=== PATIENT | female | born 1975 | race Caucasian/White ===

== ENCOUNTER 2017-07-27 10:08 | Inpatient (IN) | payer OTHER ==
[~2017-07-27] VITALS: Ht 167.6 cm; Wt 102.9 kg
[~2017-07-27 10:08] MED LIST: BUPIVACAINE/PF 0.5% ONE; EPINEPHRINE 1 MG/ML, 1ML ONE
[2017-07-27] MEDS ORDERED: SCOPOLAMINE PATCH, 1.5MG PATCH.TD72 TD STA (10:12)
[2017-07-27] MEDS ORDERED: PLEASE ENTER ALLERGIES MC SCH (10:30)
[2017-07-27] MEDS ORDERED: PLEASE ENTER HEIGHT AND WEIGHT MC SCH (10:30)
[2017-07-27] MEDS ORDERED: SCOPOLAMINE PATCH, 1.5MG PATCH.TD72 TD ONE (11:13)
[2017-07-27 11:25] LABS: HCG UR SG 1.008 (1.003-1.030)
[2017-07-27] MEDS ORDERED: LACTATED RINGERS 1,000 ML IV SCH (11:26)
[2017-07-27] MEDS ORDERED: ALBUTEROL INH (11:26)
[2017-07-27] MEDS ORDERED: CETI10CA PO (11:26)
[2017-07-27] MEDS ORDERED: LEVO150T5 PO (11:26)
[2017-07-27] MEDS ORDERED: LIDOCAINE-MPF 1%, 2ML INFIL ONE (11:30)
[2017-07-27 11:31] VITALS: BP 139/90
[2017-07-27] MEDS ORDERED: ACETAMINOPHEN 325 MG TABLET PO PRN (12:30)
[2017-07-27] MEDS ORDERED: ONDANSETRON 2MG/ML, 2ML IVPush PRN (12:30)
[2017-07-27] MEDS ORDERED: ALBUTEROL SULFATE 2.5 MG/3 ML NPPB PRN (12:30)
[2017-07-27] MEDS ORDERED: EPHEDRINE 50 MG/ML, 1ML IVPush PRN (12:30)
[2017-07-27] MEDS ORDERED: METOPROLOL 1 MG/ML, 5ML IV PRN (12:30)
[2017-07-27] MEDS ORDERED: OXYcodone 5 MG/5 ML ORAL.SOL UDC PO PRN (12:30)
[2017-07-27] MEDS ORDERED: PROMETHAZINE 25 MG/ML, 1ML IV PRN (12:30)
[2017-07-27] MEDS ORDERED: hydrALAzine 20 MG/ML, 1ML IV PRN ×2 (12:30→16:30)
[2017-07-27] MEDS ORDERED: LABETALOL 5MG/ML, 20ML IV PRN (12:30)
[2017-07-27] MEDS ORDERED: FENTANYL PF 100 MCG/2ML ONE ×2 (12:31→14:47)
[2017-07-27] MEDS ORDERED: MIDAZOLAM 1 MG/ML, 2ML ONE (12:31)
[2017-07-27] MEDS ORDERED: DEXAMETHASONE 4 MG/ML, 1ML ONE ×2 (12:54→14:30)
[2017-07-27] MEDS ORDERED: PROPOFOL 10 MG/ML, 20ML ONE (14:29)
[2017-07-27] MEDS ORDERED: ONDANSETRON 2MG/ML, 2ML ONE (14:30)
[2017-07-27] MEDS ORDERED: SUCCINYLCHOLINE 20 MG/ML, 10ML ONE (14:30)
[2017-07-27] MEDS ORDERED: morphine SULFATE 10 MG/ML, 1ML ONE (14:47)
[2017-07-27] MEDS: FENTANYL PF 100 MCG/2ML IV PRN ×2 (14:49→15:15)
[2017-07-27] MEDS: morphine SULFATE 10 MG/ML, 1ML IV PRN ×2 (15:00→15:10)
[2017-07-27] MEDS ORDERED: ACETAMINOPHEN 650 MG/20.3 ML UDC ONE (15:26)
[2017-07-27] MEDS ORDERED: OXYcodone 5 MG/5 ML ORAL.SOL UDC ONE (15:26)
[2017-07-27] MEDS ORDERED: ACETAMINOPHEN 650 MG SUPP PR PRN (16:30)
[2017-07-27] MEDS ORDERED: HYDROcodone/APAP 5/325 TABLET PO PRN (16:30)
[2017-07-27] MEDS: SODIUM CHLORIDE FLUSH 10ML SYR IVF SCH (19:59)
[2017-07-27] MEDS: CALCIUM/VITAMIN D3 250-125 TABLET PO SCH (19:59)
[2017-07-27 20:35] VITALS: BP 116/79
[2017-07-27] MEDS: ACETAMINOPHEN 325 MG TABLET PO PRN (23:27)
[2017-07-27 23:37] VITALS: BP 115/76
[2017-07-28 03:54] VITALS: BP 108/66
[2017-07-28] MEDS ORDERED: LEVOTHYROXINE 75 MCG TABLET ONE (05:13)
[2017-07-28] MEDS ORDERED: LEVOTHYROXINE 100 MCG TABLET ONE (05:14)
[2017-07-28] MEDS ORDERED: LEVOTHYROXINE 175 MCG TABLET PO SCH (06:00)
[2017-07-28 08:03] VITALS: BP 113/76
[2017-07-28] MEDS: CALCIUM/VITAMIN D3 250-125 TABLET PO SCH (09:17)
[2017-07-28] MEDS: ACETAMINOPHEN 325 MG TABLET PO PRN (09:17)
[2017-07-28] MEDS: SODIUM CHLORIDE FLUSH 10ML SYR IVF SCH (09:17)
[2017-07-28] MEDS ORDERED: HYDR-3240 PO (11:10)
[2017-07-28] MEDS ORDERED: LEVO175T2 PO (11:11)
== END 2017-07-28 11:20 | disposition home or self-care (01) | DRG 627 ==
LOC: OUT 10:08 → 4NOR 16:12 → OUT 23:46 → DCLOUNGE 07-28 11:09
PROVIDERS: ADMIT Surgery; ATTEND Surgery
PROC: 0GTG0ZZ Resection of Left Thyroid Gland Lobe, Open Approach (ICD-10-PCS; principal; 2017-07-27 12:15)
DX: E04.1 Nontoxic single thyroid nodule (principal)
CPT/HCPCS: 36415; 81025; 82310; 83970; 88307; J0171; J1100; J2250; J2405; J2704; J3010; J3490; C1760; J0330; J2270; J7120